=== PATIENT | male | born 1950 | race Caucasian/White ===

== ENCOUNTER 2017-01-22 05:50 | Day surgery (SDC) | payer BC ==
--- NOTE | 2017-01-19 10:21 | HP ---
DATE OF SURGERY: 01/22/2017 ADMISSION DIAGNOSIS: Dysphagia. ANTICIPATED PROCEDURE: EGD possible dilatation. HISTORY OF PRESENT ILLNESS: The patient has difficulty swallowing. Discussion concerning esophageal dilatation and even rupture were discussed and he wished to proceed. PAST MEDICAL HISTORY: ALLERGIES: NONE. MEDICATIONS: Aspirin. PAST SURGICAL HISTORY: Heart stent 2007. SOCIAL HISTORY: Negative. FAMILY HISTORY: Negative. REVIEW OF SYSTEMS: Negative. PHYSICAL EXAMINATION: VITAL SIGNS: Normal. CHEST: Clear. COR: Regular. NECK: Satisfactory. IMPRESSION: Dysphagia. PLAN: EGD possible dilatation.
[2017-01-22] MEDS ORDERED: VERSED 5 MG/5 ML IV ONE (05:51)
[2017-01-22] MEDS ORDERED: DEMEROL 50 MG IV ONE (05:51)
[2017-01-22] MEDS ORDERED: SUBLIMAZE 100 MCG/2 ML IV ONE (05:51)
[2017-01-22] MEDS ORDERED: Sodium Chloride 0.9% 1000 ML 1,000 ML IV SCH (06:30)
[2017-01-22] MEDS ORDERED: Sodium Chloride 0.9% 1000 ML 1,000 ML ONE (07:03)
[2017-01-22 12:02] VITALS: O2SAT 95
[2017-01-22 12:04] VITALS: BP 118/72; PULSE 65
--- NOTE | 2017-01-22 13:32 | OP ---
SURGERY DATE/TIME: 01/22/2017 1013 PREOPERATIVE DIAGNOSIS: Dysphagia. POSTOPERATIVE DIAGNOSIS: Esophageal stricture. PROCEDURE: EGD with balloon dilatation to size 18 for 15 minutes. SURGEON: Aleks Palmer M.D. ANESTHESIA: IV sedation titrated. COMPLICATIONS: None. CONDITION: Stable. INDICATION: A patient requiring evaluation for dysphagia. DESCRIPTION OF PROCEDURE: Taken to endoscopy. Left lateral decubitus position. IV sedation titrated. Oximeter kept over 90%. Comfort level satisfactory. The scope introduced. Esophageal stricture size 24. There was some gastritis. Fundus, body, antrum and pylorus satisfactory. Duodenal bulb satisfactory. Scope advanced. Second portion of the duodenum satisfactory. Scope withdrawn. The balloon size 18 was dilated to phase 1, phase 2, phase 3. This opened this up to about size 42. The patient tolerated the procedure satisfactorily. Licensed Esthetician cold biopsy for gastritis. Findings discussed with the family out in the waiting room.
== END 2017-01-22 11:55 | disposition home or self-care (01) ==
LOC: SDC 05:50
PROVIDERS: ATTEND Surgery
PROC: 0D758ZZ Dilation of Esophagus, Via Natural or Artificial Opening Endoscopic (ICD-10-PCS; principal; 2017-01-22)
DX: K22.2 Esophageal obstruction (principal)
CPT/HCPCS: 82962; 87081; C1726; J2175; J2250; J3010

== ENCOUNTER 2018-08-06 17:51 | Emergency (ER) | payer MEDICARE, OTHER ==
[2018-08-06] MEDS: Nitrostat 0.4 MG (ED) SL ONE (18:00)
[2018-08-06] MEDS: Ntg 0.2MG/Ml in D5W GLASS*** 250 ML IV PRN (18:03)
[2018-08-06] MEDS ORDERED: Ntg 0.2MG/Ml in D5W GLASS*** 250 ML IV ONE (18:03)
[2018-08-06] MEDS ORDERED: Sodium Chloride 0.9% 1000 ML 1,000 ML ONE (18:04)
[2018-08-06] MEDS ORDERED: MORPHINE SULFATE 4 MG INJ ONE (18:04)
--- NOTE | 2018-08-06 18:05 | ERPHSYRPT ---
- History of Present Illness Time Seen by Provider: 08/06/18 17:57 Historian: patient Exam Limitations: no limitations Physician History: 67 y/o white male presents with significant cp. pts with STEMI on immediate 12 lead ekg. cp central without radiation. began one hour front office specialist. pts [employer] is Dr. Koehler. pt took one 325mg asa front office specialist. pt has h/o single cardiac stent. spoke with dr. Magdaleno, foreign trade teacher at [facility] accepts pt and no meds other than ntg and morphine. Timing/Duration: today Activities at Onset: none Quality: pressure, tightness Location: substernal, central Chest Pain Radiation: no radiation Severity of Pain-Max: moderate Severity of Pain-Current: moderate Modifying Factors: Improves With: nothing Associated Symptoms: denies symptoms Prior Chest Pain/Cardiac Workup: cardiac cath, echocardiography, heart attack Nitro Today/Relief: no nitro taken today Aspirin Treatment Today: 325 mg x 1, provided at home Allergies/Adverse Reactions: No Known Drug Allergies Allergy (Verified 08/06/18 17:52) Home Medications: Aspirin 81 gm Chew [Baby Aspirin 81 mg Chew] 162 mg DAILY 06/27/13 [ History] Atorvastatin Calcium 40 mg PO DAILY 01/22/17 [History] Metformin HCl 500 mg [Glucophage 500 MG] 500 mg PO BIDWM 01/22/17 [History ] Valsartan [Diovan] 320 mg PO DAILY 01/22/17 [History] Hx Tetanus, Diphtheria Vaccination/Date Given: No Hx Influenza Vaccination/Date Given: No Hx Pneumococcal Vaccination/Date Given: No - Review of Systems Constitutional: No Symptoms Eyes: No Symptoms Ears, Nose, & Throat: No Symptoms Respiratory: No Symptoms Cardiac: Chest Pain Abdominal/Gastrointestinal: No Symptoms Genitourinary Symptoms: No Symptoms Musculoskeletal: No Symptoms Skin: No Symptoms Neurological: No Symptoms Psychological: No Symptoms Endocrine: No Symptoms Hematologic/Lymphatic: No Symptoms Immunological/Allergic: No Symptoms All Other Systems: Reviewed and Negative - Past Medical History Pertinent Past Medical History: Yes Neurological History: No Pertinent History ENT History: No Pertinent History Cardiac History: Coronary Artery Disease, High Cholesterol, Hypertension, Myocardial Infarction ([place]) Respiratory History: No Pertinent History Endocrine Medical History: Diabetes Type II Musculoskeletal History: No Pertinent History GI Medical History: No Pertinent History History: No Pertinent History Psycho-Social History: No Pertinent History Male Reproductive Disorders: No Pertinent History - Past Surgical History Past Surgical History: No Neuro Surgical History: No Pertinent History Cardiac: Cardiac Catheterization, Cardiac Stent Respiratory: No Pertinent History Gastrointestinal: No Pertinent History Genitourinary: No Pertinent History Musculoskeletal: Other Male Surgical History: No Pertinent History Other Surgical History: foot surgery - Social History Smoking Status: Former smoker How long have you smoked: 16 years Exposure to second hand smoke: No Drug Use: none Patient Lives Alone: No - Physical Exam General Appearance: moderate distress, alert, anxiety Eye Exam: PERRL/EOMI Ears, Nose, Throat Exam: normal ENT inspection, moist mucous membranes Neck Exam: normal inspection, non-tender, supple, full range of motion Respiratory Exam: normal breath sounds, chest tenderness, lungs clear, airway intact, No respiratory distress Cardiovascular Exam: regular rate/rhythm, normal heart sounds, normal peripheral pulses Gastrointestinal/Abdomen Exam: soft, normal bowel sounds, No tenderness Rectal Exam: not done Back Exam: normal inspection, normal range of motion, No CVA tenderness, No vertebral tenderness Extremity Exam: normal inspection, normal range of motion, pelvis stable Neurologic Exam: alert, oriented x 3, cooperative, registered medical assistant II-XII nml as tested Skin Exam: normal color, warm, dry Lymphatic Exam: No adenopathy SpO2 Interpretation: normal O2 Delivery: Room Air - Course Nursing assessment & vital signs reviewed: Yes EKG Interpreted by Me: RATE (85), NORMAL AXIS, ST Elev (1, avl, v2), Other ( normal comparison ekg 06/28/13) - Progress Progress: unchanged Air Movement: good Progress Note: 08/06/18 18:09 dr. magdaleno accepts pt in transfer to [facility] Counseled pt/family regarding: diagnosis - Departure Departure Disposition: Transfer Clinical Impression: STEMI (ST elevation myocardial infarction), Chest pain Condition: Serious Critical Care Time: Yes Critical Care Time(excluding separately billable procedures): 30-74 minutes Referrals: GIANNI BOBO [Primary Care Provider] -
[2018-08-06 18:17] VITALS: O2SAT 96
[2018-08-06] MEDS: MORPHINE SULFATE 4 MG INJ IV ONE (18:21)
[2018-08-06 18:22] LABS: BASOPHIL % 0.4 % (0.0-0.4); Basophil (Absolute #) 0.04 (0-0.4); Eosinophil % 2.4 % (0.00-5.0); Eosinophil (Absolute #) 0.25 (0-0.5); Granulocyte Absolute (ANC) 6.41 (1.4-6.9); Granulocytes % 60.7 % (36.0-66.0); Hematocrit 44.1 % (42-50); Hemoglobin 15.3 gm/dl (12.5-18.0); Lymphocyte (Absolute #) 2.93 (1.0-4.6); Lymphocytes % 27.8 % (24.0-44.0); Mean Cell Volume 82.9 fl (78-100); Mean Corpuscular Hemoglobin 28.8 pg (26-32); Mean Corpuscular Hgb Concent. 34.7 g/dl (32-36); Mean Platelet Volume 9.9 fl (6-9.5); Monocyte (Absolute #) 0.92 (0.0-1.3); Monocytes % 8.7 % (0.0-12.0); Platelet Count 293 K/mm3 (150-450); Red Blood Count 5.32 M/mm3 (4.1-5.6); Red Cell Distribution Width 13.6 % (11.5-14.0); White Blood Count 10.6 K/mm3 (4.0-10.5)
[2018-08-06 18:23] VITALS: BP 167/102; PULSE 74
[2018-08-06 18:43] LABS: ALBUMIN 4.6 g/dL (3.5-5.0); ALKALINE PHOSPHATASE 76 U/L (38-126); BLOOD UREA NITROGEN 20 mg/dL (9-20); CHLORIDE 103 mmol/L (98-107); Calcium 10.2 mg/dL (8.4-10.2); Carbon Dioxide 25 mmol/L (22-30); Glucose 148 mg/dL (74-106); NT PRO BNP 72.7 pg/mL (0-900); Potassium 3.7 mmol/L (3.5-5.1); SGOT/AST 23 U/L (17-59); SGPT/ALT 21 U/L (0-50); SODIUM 142 mmol/L (137-145); Total Protein 7.9 g/dL (6.3-8.2)
== END 2018-08-06 18:12 | disposition short-term general hospital (02) ==
LOC: ED 17:51
DX: I21.3 ST elevation (STEMI) myocardial infarction of unspecified site (principal); R07.9 Chest pain, unspecified; I25.10 Atherosclerotic heart disease of native coronary artery without angina pectoris; I10 Essential (primary) hypertension; E78.00 Pure hypercholesterolemia, unspecified; E11.9 Type 2 diabetes mellitus without complications; Z79.4 Long term (current) use of insulin; I25.2 Old myocardial infarction; Z79.82 Long term (current) use of aspirin; Z79.899 Other long term (current) drug therapy
CPT/HCPCS: 36000; 36415; 80053; 83880; 84484; 85025; 85379; 93005; 99285; 99291; J2270; A9270-GY

== ENCOUNTER 2018-09-17 09:04 | Emergency (ER) | payer MEDICARE, OTHER ==
[2018-09-17 09:20] VITALS: O2SAT 99
[2018-09-17] MEDS ORDERED: BABY ASPIRIN 81 MG CHEW ONE (09:27)
[2018-09-17] MEDS ORDERED: Sodium Chloride 0.9% 1000 ML 1,000 ML ONE (09:27)
[2018-09-17] MEDS ORDERED: Nitrostat 0.4 MG (ED) SL ONE ×2 (09:27→09:28)
[2018-09-17] MEDS ORDERED: BABY ASPIRIN 81 MG CHEW PO ONE (09:28)
[2018-09-17] MEDS ORDERED: Sodium Chloride 0.9% 1000 ML 1,000 ML IV SCH (09:30)
[2018-09-17 09:33] LABS: BASOPHIL % 0.4 % (0.0-0.4); Basophil (Absolute #) 0.04 (0-0.4); Eosinophil % 3.8 % (0.00-5.0); Eosinophil (Absolute #) 0.39 (0-0.5); Granulocyte Absolute (ANC) 8.13 (1.4-6.9); Granulocytes % 80.1 % (36.0-66.0); Hematocrit 39.8 % (42-50); Hemoglobin 13.7 gm/dl (12.5-18.0); Lymphocytes % 9.8 % (24.0-44.0); Mean Cell Volume 86.1 fl (78-100); Mean Corpuscular Hemoglobin 29.7 pg (26-32); Mean Corpuscular Hgb Concent. 34.4 g/dl (32-36); Mean Platelet Volume 10.3 fl (6-9.5); Monocytes % 5.9 % (0.0-12.0); Platelet Count 211 K/mm3 (150-450); Red Blood Count 4.62 M/mm3 (4.1-5.6); Red Cell Distribution Width 14.8 % (11.5-14.0); White Blood Count 10.2 K/mm3 (4.0-10.5)
[2018-09-17 09:35] LABS: INR 1.39 (0.8-3.0); PROTIME 15.8 SECONDS (8.83-12.87)
[2018-09-17 09:40] LABS: ALBUMIN 3.8 g/dL (3.5-5.0); ALKALINE PHOSPHATASE 82 U/L (38-126); ANION GAP 13.7 MEQ/L (5-15); BLOOD UREA NITROGEN 18 mg/dL (9-20); CHLORIDE 103 mmol/L (98-107); Calcium 9.4 mg/dL (8.4-10.2); Carbon Dioxide 25 mmol/L (22-30); Creatinine 1 0.78 mg/dL (0.66-1.25); Glucose 217 mg/dL (74-106); Potassium 4.5 mmol/L (3.5-5.1); SGOT/AST 29 U/L (17-59); SGPT/ALT 28 U/L (0-50); SODIUM 138 mmol/L (137-145); Total Protein 6.8 g/dL (6.3-8.2)
[2018-09-17] MEDS ORDERED: MORPHINE SULFATE 10 MG/ML IV ONE (09:45)
[2018-09-17] MEDS ORDERED: Zofran 4 MG/2 ML VIAL IV ONE (09:45)
[2018-09-17] MEDS ORDERED: ENOXAPARIN SODIUM SQ ONE ×2 (09:46→09:50)
[2018-09-17] MEDS ORDERED: MORPHINE SULFATE 10 MG/ML ONE (09:50)
--- NOTE | 2018-09-17 09:54 | ERPHSYRPT ---
- History of Present Illness Time Seen by Provider: 09/17/18 09:15 Historian: patient Exam Limitations: clinical condition Patient Subjective Stated Complaint: Pain in RUQ and in his back that started out as hertburn, Stent placed in July and ballooned out another one, rates pain 9 /10 Triage Nursing Assessment: Pt walked into the ER, hypertensive, bradycardic, rates pain 9/10, skin normal and dry, no edema, last intake 1900 last night, Physician History: PATIENT WITH A HISTORY OF ACUTE MYOCARDIA INFARCTION 08/06/2018 UNDERWENT STENT INSERTION X 2, AWAKENED FROM SLEEP AT 3AM WITH LOWER SUBSTERNAL CHEST PAIN PRESSURE DISCOMFORT PAIN SCALE 7/10. PAIN RADIATES TO BACK AND HAS BEEN PERSISTENT. DENIES DIAPHORESIS, PALPITATIONS, RADIATION OF PAIN TO NECK JAW OR ARMS. Timing/Duration: today Activities at Onset: none Quality: pressure, sharpness Location: substernal Chest Pain Radiation: back Severity of Pain-Max: moderate Severity of Pain-Current: moderate Modifying Factors: Improves With: nothing Associated Symptoms: diaphoresis Prior Chest Pain/Cardiac Workup: cardiac cath, heart attack (CORONARY STENT INSERTION X 2) Nitro Today/Relief: 0.4 mg x 3, provided by ED, mild relief Aspirin Treatment Today: 81 mg x 4 Allergies/Adverse Reactions: No Known Drug Allergies Allergy (Verified 09/17/18 09:20) Home Medications: Aspirin 81 gm Chew [Baby Aspirin 81 mg Chew] 81 mg DAILY 06/27/13 [History ] Atorvastatin Calcium 80 mg PO DAILY 01/22/17 [History] Metformin HCl 500 mg [Glucophage 500 MG] 500 mg PO BIDWM 01/22/17 [History ] Carvedilol 3.125 mg [Coreg 3.125 MG] 3.125 mg PO DAILY 09/17/18 [History] Enalapril Maleate 2.5 mg PO BID 09/17/18 [History] Nitroglycerin 0.4 mg SL UD 09/17/18 [History] Spironolactone 25 mg PO DAILY 09/17/18 [History] Ticagrelor [Brilinta] 90 mg PO BID 09/17/18 [History] Hx Tetanus, Diphtheria Vaccination/Date Given: No Hx Influenza Vaccination/Date Given: No Hx Pneumococcal Vaccination/Date Given: No - Review of Systems Constitutional: No Fever, No Chills Eyes: No Symptoms Ears, Nose, & Throat: No Symptoms Respiratory: No Symptoms, No Cough, No Dyspnea Cardiac: Chest Pain (DIAPHORESIS), No Edema, No Syncope Abdominal/Gastrointestinal: No Abdominal Pain, No Nausea, No Vomiting, No Diarrhea Genitourinary Symptoms: No Dysuria Musculoskeletal: No Symptoms, No Back Pain, No Neck Pain Skin: No Rash Neurological: No Dizziness, No Focal Weakness, No Sensory Changes Psychological: No Symptoms Endocrine: No Symptoms All Other Systems: Reviewed and Negative - Past Medical History Pertinent Past Medical History: Yes Neurological History: No Pertinent History ENT History: No Pertinent History Cardiac History: Coronary Artery Disease, High Cholesterol, Hypertension, Myocardial Infarction ([place]) Respiratory History: No Pertinent History Endocrine Medical History: Diabetes Type II Musculoskeletal History: No Pertinent History GI Medical History: No Pertinent History History: No Pertinent History Psycho-Social History: No Pertinent History Male Reproductive Disorders: No Pertinent History - Past Surgical History Past Surgical History: Yes Neuro Surgical History: No Pertinent History Cardiac: Cardiac Catheterization, Cardiac Stent Respiratory: No Pertinent History Gastrointestinal: No Pertinent History Genitourinary: No Pertinent History Musculoskeletal: Other Male Surgical History: No Pertinent History Other Surgical History: foot surgery - Social History Smoking Status: Former smoker How long have you smoked: 16 years Exposure to second hand smoke: Yes Drug Use: none Patient Lives Alone: No - Nursing Vital Signs Nursing Vital Signs: Initial Vital Signs Pulse Rate 48 L 09/17/18 09:11 Respiratory Rate 20 09/17/18 09:11 Blood Pressure 167/83 09/17/18 09:11 O2 Sat by Pulse Oximetry 99 09/17/18 09:11 Pain Scale Pain Intensity 2 - Physical Exam General Appearance: no apparent distress, alert Eye Exam: PERRL/EOMI, eyes nml inspection Ears, Nose, Throat Exam: normal ENT inspection, moist mucous membranes Neck Exam: normal inspection, non-tender, supple, full range of motion Respiratory Exam: normal breath sounds, lungs clear, No respiratory distress Cardiovascular Exam: regular rate/rhythm, normal heart sounds, bradycardia Gastrointestinal/Abdomen Exam: soft, No tenderness, No mass Back Exam: normal inspection, No CVA tenderness, No vertebral tenderness Extremity Exam: normal inspection, normal range of motion Neurologic Exam: alert, oriented x 3, cooperative, normal mood/affect, sensation nml, No motor deficits Skin Exam: normal color, warm, dry SpO2 Interpretation: normal SpO2: 99 O2 Delivery: Room Air Ordered Tests: Active Orders 24 hr Category Date Time Status Senior Mechanical Project Manager STAT Care 09/17/18 09:29 Active EKG-ER Only STAT Care 09/17/18 09:28 Active IV Insertion STAT Care 09/17/18 09:28 Active IV Insertion STAT Care 09/17/18 09:45 Active Oxygen-ED Only Nasal Cannula 2 lpm Care 09/17/18 09:28 Active CHEST 1 VIEW (PORTABLE) Stat Exams 09/17/18 09:28 Completed CBC W DIFF Stat Lab 09/17/18 09:23 Completed CMP Stat Lab 09/17/18 09:23 Completed D-DIMER QUANTITATION Stat Lab 09/17/18 09:23 Completed MAGNESIUM Stat Lab 09/17/18 09:23 Completed PROTIME WITH INR Stat Lab 09/17/18 09:23 Completed TROPONIN Q3H Lab 09/17/18 09:23 Completed TROPONIN Q3H Lab 09/17/18 12:30 Ordered TROPONIN Q3H Lab 09/17/18 15:30 Ordered TROPONIN Q3H Lab 09/17/18 18:30 Ordered TROPONIN Q3H Lab 09/17/18 21:30 Ordered Medication Summary Generic Name Dose Route Start Last Admin Trade Name Freq PRN Reason Stop Dose Admin Sodium Chloride 1,000 mls @ 100 mls/hr 09/17/18 09:30 09/17/18 09:35 Sodium Chloride 0.9% 1000 Ml IV 10/17/18 09:29 100 mls/hr .Q10H CARY Administration Discontinued Medications Generic Name Dose Route Start Last Admin Trade Name Freq PRN Reason Stop Dose Admin Aspirin 324 mg 09/17/18 09:28 09/17/18 09:34 Baby Aspirin 81 Mg Chew PO 09/17/18 09:29 324 mg STAT ONE Administration Aspirin Confirm 09/17/18 09:27 Baby Aspirin 81 Mg Chew Administered 09/17/18 09:28 Dose 324 mg .ROUTE .STK-MED ONE Enoxaparin Sodium 60 mg 09/17/18 09:46 09/17/18 09:54 Enoxaparin Sodium SQ 09/17/18 09:47 60 mg STAT ONE Administration Enoxaparin Sodium Confirm 09/17/18 09:50 Enoxaparin Sodium Administered 09/17/18 09:51 Dose 80 mg SQ .STK-MED ONE Nitroglycerin/Dextrose Confirm 09/17/18 10:09 Ntg 0.2mg/Ml In D5w Glass Administered 09/17/18 10:10 Dose 250 mls @ ud IV .STK-MED ONE Morphine Sulfate 6 mg 09/17/18 09:45 09/17/18 09:53 Morphine Sulfate 10 Mg/Ml IV 09/17/18 09:46 6 mg STAT ONE Administration Morphine Sulfate Confirm 09/17/18 09:50 Morphine Sulfate 10 Mg/Ml Administered 09/17/18 09:51 Dose 10 mg .ROUTE .STK-MED ONE Nitroglycerin 0.4 mg 09/17/18 09:28 09/17/18 09:35 Nitrostat 0.4 Mg (Ed) SL 09/17/18 09:29 0.4 mg STAT ONE Administration Nitroglycerin Confirm 09/17/18 09:27 Nitrostat 0.4 Mg (Ed) Administered 09/17/18 09:28 Dose 0.4 mg SL .STK-MED ONE Ondansetron HCl 4 mg 09/17/18 09:45 09/17/18 10:07 Zofran 4 Mg/2 Ml Vial IV 09/17/18 09:46 4 mg STAT ONE Administration Ondansetron HCl Confirm 09/17/18 10:05 Zofran 4 Mg/2 Ml Vial Administered 09/17/18 10:06 Dose 4 mg .ROUTE .STK-MED ONE Lab/Rad Data: Laboratory Result Diagrams 09/17/18 09:23 09/17/18 09:23 Laboratory Results 09/17/18 09/17/18 09/17/18 Range/Units 09:23 09:23 09:23 WBC (4.0-10.5) K/mm3 RBC (4.1-5.6) M/mm3 Hgb (12.5-18.0) gm/dl Hct (42-50) % MCV (78-100) fl MCH (26-32) pg MCHC (32-36) g/dl RDW (11.5-14.0) % Plt Count (150-450) K/mm3 MPV (6-9.5) fl Gran % (36.0-66.0) % Eos # (Auto) (0-0.5) Absolute Lymphs (auto) (1.0-4.6) Absolute Monos (auto) (0.0-1.3) Lymphocytes % (24.0-44.0) % Monocytes % (0.0-12.0) % Eosinophils % (0.00-5.0) % Basophils % (0.0-0.4) % Absolute Granulocytes (1.4-6.9) Basophils # (0-0.4) PT 15.8 H (8.83-12.87) SECONDS INR 1.39 (0.8-3.0) D-Dimer 530 H* (215-500) ng/mL Sodium (137-145) mmol/L Potassium (3.5-5.1) mmol/L Chloride (98-107) mmol/L Carbon Dioxide (22-30) mmol/L Anion Gap (5-15) MEQ/L BUN (9-20) mg/dL Creatinine (0.66-1.25) mg/dL Estimated GFR ML/MIN Glucose (74-106) mg/dL Calcium (8.4-10.2) mg/dL Magnesium 1.9 (1.6-2.3) mg/dL Total Bilirubin (0.2-1.3) mg/dL AST (17-59) U/L ALT (0-50) U/L Alkaline Phosphatase (38-126) U/L Troponin I 0.019 (0.000-0.034) ng/mL Serum Total Protein (6.3-8.2) g/dL Albumin (3.5-5.0) g/dL 09/17/18 09/17/18 Range/Units 09:23 09:23 WBC 10.2 (4.0-10.5) K/mm3 RBC 4.62 (4.1-5.6) M/mm3 Hgb 13.7 (12.5-18.0) gm/dl Hct 39.8 L (42-50) % MCV 86.1 (78-100) fl MCH 29.7 (26-32) pg MCHC 34.4 (32-36) g/dl RDW 14.8 H (11.5-14.0) % Plt Count 211 (150-450) K/mm3 MPV 10.3 H (6-9.5) fl Gran % 80.1 H (36.0-66.0) % Eos # (Auto) 0.39 (0-0.5) Absolute Lymphs (auto) 1.00 (1.0-4.6) Absolute Monos (auto) 0.60 (0.0-1.3) Lymphocytes % 9.8 L (24.0-44.0) % Monocytes % 5.9 (0.0-12.0) % Eosinophils % 3.8 (0.00-5.0) % Basophils % 0.4 (0.0-0.4) % Absolute Granulocytes 8.13 H (1.4-6.9) Basophils # 0.04 (0-0.4) PT (8.83-12.87) SECONDS INR (0.8-3.0) D-Dimer (215-500) ng/mL Sodium 138 (137-145) mmol/L Potassium 4.5 (3.5-5.1) mmol/L Chloride 103 (98-107) mmol/L Carbon Dioxide 25 (22-30) mmol/L Anion Gap 13.7 (5-15) MEQ/L BUN 18 (9-20) mg/dL Creatinine 0.78 (0.66-1.25) mg/dL Estimated GFR > 60.0 ML/MIN Glucose 217 H (74-106) mg/dL Calcium 9.4 (8.4-10.2) mg/dL Magnesium (1.6-2.3) mg/dL Total Bilirubin 0.70 (0.2-1.3) mg/dL AST 29 (17-59) U/L ALT 28 (0-50) U/L Alkaline Phosphatase 82 (38-126) U/L Troponin I (0.000-0.034) ng/mL Serum Total Protein 6.8 (6.3-8.2) g/dL Albumin 3.8 (3.5-5.0) g/dL - Progress Progress Note: 09/17/18 09:57 ADMINISTERED BABY ASPIRIN 81MG X 4, NTG SL 0.4MG X 3 DOSES MINIMAL RELIEF, LOVENOX 60MG SUBQ, PAIN SCALE 3/10 IMPROVED 09/17/18 10:01, IV ZOFRAN 4MG, MORPHINE 6MG Discussed with : Other (DISCUSSED [facility] AT [facility]5 ACCEPTS TRANSFER VIA [facility]) - Departure Departure Disposition: Transfer Clinical Impression: UNSTABLE ANGINA Condition: Stable Critical Care Time: No Referrals: RAMIRO SIM, DRY CHAIN OFFBEARER [Primary Care Provider] -
--- NOTE | 2018-09-17 09:56 | XRAY ---
Indication: Chest pain. Comparison: June 27, 2013. Portable chest less inflated accentuating the cardiopulmonary structures. No focal infiltrate, consolidation, or large effusion. Heart is not enlarged for AP portable technique. Bony thorax intact. Impression: Nonacute chest.
[2018-09-17] MEDS ORDERED: Zofran 4 MG/2 ML VIAL ONE (10:05)
[2018-09-17] MEDS ORDERED: Ntg 0.2MG/Ml in D5W GLASS*** 250 ML IV ONE (10:09)
[2018-09-17] MEDS ORDERED: Ntg 0.2MG/Ml in D5W GLASS*** 250 ML IV PRN (10:28)
[2018-09-17 10:41] VITALS: BP 116/62; PULSE 50
== END 2018-09-17 10:22 | disposition short-term general hospital (02) ==
LOC: ED 09:04
DX: I20.0 Unstable angina (principal); I25.2 Old myocardial infarction; E11.9 Type 2 diabetes mellitus without complications; Z79.4 Long term (current) use of insulin; I25.10 Atherosclerotic heart disease of native coronary artery without angina pectoris; I10 Essential (primary) hypertension; Z79.899 Other long term (current) drug therapy
CPT/HCPCS: 36000; 36415; 71045; 80053; 83735; 84484; 85025; 85379; 85610; 93005; 93041; 96360; 96365; 96372; 96374; 96375; 99285; 99291; J1650; J2270; J2405; A9270-GY

== ENCOUNTER 2021-05-02 15:58 | Emergency (ER) | payer MEDICARE, OTHER ==
[2021-05-02 18:06] VITALS: BP 118/67; PULSE 96
[2021-05-02 18:08] VITALS: O2SAT 96
--- NOTE | 2021-05-02 18:08 | ERPHSYRPT ---
- History of Present Illness Time Seen by Provider: 05/02/21 16:30 Source: patient Exam Limitations: no limitations Patient Subjective Stated Complaint: pt here for an swelling to left jaw for a couple days,was seen at [place] last night and dentist is aware of problem Triage Nursing Assessment: pt alert, walked in . resp easy, skin w/d/p, face mask in place, has swelling to left side of jaw Physician History: 70 years old male with dental work-up done few weeks ago presented to the ER with complaint of left lower jaw swelling gradual onset progressively worsening for the last 4 days with associated mild sharp pain. Patient was evaluated yesterday at [place] ER and has taken 3 doses of amoxicillin prescribed by his dentist presented with increasing swelling. No difficulty swallowing or difficulty breathing reported. No swelling floor of the mouth but on the lateral aspect of left lower jaw. No neck swelling or pressure/choking sensation. Timing/Duration: gradual onset, persistent, days (4) Severity: moderate ENT Location: facial, dental Prearrival Treatment: prescription meds Associated Symptoms: facial pain/swelling, tooth pain Allergies/Adverse Reactions: No Known Drug Allergies Allergy (Verified 05/02/21 16:29) Home Medications: Aspirin 81 gm Chew [Baby Aspirin 81 mg Chew] 81 mg DAILY 06/27/13 [History] Atorvastatin Calcium 80 mg PO DAILY 01/22/17 [History] Metformin HCl 500 mg [Glucophage 500 MG] 500 mg PO BIDWM 01/22/17 [History] Carvedilol 3.125 mg [Coreg 3.125 MG] 3.125 mg PO DAILY 09/17/18 [History] Enalapril Maleate 2.5 mg PO BID 09/17/18 [History] Nitroglycerin 0.4 mg SL UD 09/17/18 [History] Spironolactone 25 mg PO DAILY 09/17/18 [History] Ticagrelor [Brilinta] 90 mg PO BID 09/17/18 [History] Hx Tetanus, Diphtheria Vaccination/Date Given: No Hx Influenza Vaccination/Date Given: No Hx Pneumococcal Vaccination/Date Given: No Immunizations Up to Date: Yes Travel Risk - International Travel Have you traveled outside of the country in past 3 weeks: No - Coronavirus Screening Are you exhibiting any of the following symptoms?: No - Vaccine Status Have you recieved a Covid-19 vaccination: No - Review of Systems Constitutional: No Symptoms Eyes: No Symptoms Ears, Nose, & Throat: Mouth Pain, Mouth Swelling Respiratory: No Symptoms Cardiac: No Symptoms Abdominal/Gastrointestinal: No Symptoms Genitourinary Symptoms: No Symptoms Musculoskeletal: No Symptoms Skin: No Symptoms Neurological: No Symptoms Psychological: No Symptoms Endocrine: No Symptoms Hematologic/Lymphatic: No Symptoms Immunological/Allergic: No Symptoms - Past Medical History Pertinent Past Medical History: Yes Neurological History: No Pertinent History ENT History: No Pertinent History Cardiac History: Coronary Artery Disease, High Cholesterol, Hypertension, Myocardial Infarction ([place]) Respiratory History: No Pertinent History Endocrine Medical History: Diabetes Type II Musculoskeletal History: No Pertinent History GI Medical History: No Pertinent History History: No Pertinent History Psycho-Social History: No Pertinent History Male Reproductive Disorders: No Pertinent History - Past Surgical History Past Surgical History: Yes Neuro Surgical History: No Pertinent History Cardiac: Cardiac Catheterization, Cardiac Stent Respiratory: No Pertinent History Gastrointestinal: No Pertinent History Genitourinary: No Pertinent History Musculoskeletal: Other Male Surgical History: No Pertinent History Other Surgical History: foot surgery - Social History Smoking Status: Former smoker How long have you smoked: 16 years Exposure to second hand smoke: Yes Drug Use: none Patient Lives Alone: No - Nursing Vital Signs Nursing Vital Signs: Initial Vital Signs Temperature 97.9 F 05/02/21 16:23 Pulse Rate 73 05/02/21 16:23 Respiratory Rate 18 05/02/21 16:23 Blood Pressure 155/100 05/02/21 16:23 O2 Sat by Pulse Oximetry 98 05/02/21 16:23 Pain Scale Pain Intensity 7 - Physical Exam General Appearance: no apparent distress, alert Eye Exam: bilateral eye: normal inspection, PERRL, EOMI Ear Exam: bilateral ear: auricle normal, canal normal, TM normal Nasal Exam: normal inspection Throat Exam: pharynx normal, dental tenderness (Left lower jaw), mandibular swelling (Left lower gingival swelling, firm consistency. No fluctuation.) Neck Exam: normal inspection, non-tender, supple, full range of motion, trachea midline Cardiovascular/Respiratory Exam: normal breath sounds, regular rate/rhythm Neurologic Exam: alert, oriented x 3, cooperative, gaming associate II-XII nml as tested Skin Exam: normal color SpO2 Interpretation: normal SpO2: 96 O2 Delivery: Room Air Ordered Tests: Active Orders 24 hr Category Date Time Status FACIAL BONES WO CONTRAST [CT] Stat Exams 05/02/21 17:07 Taken - Progress Progress: unchanged Progress Note: 05/02/21 18:[address] which is negative for abscess but does have soft tissue swelling. No airway narrowing or pressure. Recommended continue with Tylenol ibuprofen and amoxicillin and outpatient follow-up with his dentist tomorrow. Counseled pt/family regarding: diagnosis, need for follow-up, rad results - Departure Departure Disposition: Home Clinical Impression: Dental infection Condition: Stable Critical Care Time: No Referrals: ASIM LPOEZ MD [Primary Care Provider] - Follow up/PCP as directed MARY NICHOLAS DDS [NON-STAFF PHY W/O PRIVILEGES] - Follow up/PCP as directed (tomorrow for re evaluation ) Instructions: Dental Pain (DC), Tooth Abscess (DC) Additional Instructions: Take Tylenol/ibuprofen as needed for pain. Do warm salt water gargles. Follow- up with your dentist for reevaluation tomorrow. Return to ER for increasing swelling, difficulty breathing/swallowing, pressure on the throat/choking sensation.
--- NOTE | 2021-05-03 08:45 | XRAY ---
Indication: Left facial pain. Abscess. Multiple contiguous axial images obtained through the facial bones without contrast. Comparison: None There are multiple bilateral dental amalgams producing beam artifact limiting these levels. No acute fracture, suspicious bony lesions, or osseous destructive process. Orbits including roof, pressley, and floors are intact. Minimal C3-C6 degenerative endplate spurring. Paranasal sinuses and nasal passages are clear. Mild nasal septal deviation to the right. Left jaw demonstrates moderate cutaneous/subcutaneous induration presumed inflammatory/infectious. No focal walled off fluid collection or soft tissue emphysema. There are scattered small submandibular/cervical lymph nodes, largest left submandibular measuring 6 x 11 mm favored to be reactive. Parotid and submandibular glands are bilaterally symmetric. Remaining visualized noncontrasted soft tissues including orbits and base of the brain are unremarkable. Impression: 1. Beam artifact. 2. Left jaw soft tissue induration presumed inflammatory/infectious. No walled off fluid collection/abscess or soft tissue emphysema. 3. Incidental nasal septal deviation and C3-C6 degenerative changes.
== END 2021-05-02 19:06 | disposition home or self-care (01) ==
LOC: ED 15:58
DX: K04.7 Periapical abscess without sinus (principal); I25.10 Atherosclerotic heart disease of native coronary artery without angina pectoris; E78.5 Hyperlipidemia, unspecified; I10 Essential (primary) hypertension; E11.9 Type 2 diabetes mellitus without complications; Z79.84 Long term (current) use of oral hypoglycemic drugs; Z79.899 Other long term (current) drug therapy
CPT/HCPCS: 70486; 99283

== ENCOUNTER 2021-05-10 19:38 | Emergency (ER) | payer MEDICARE, OTHER ==
--- NOTE | 2021-05-10 19:45 | ERPHSYRPT ---
- History of Present Illness Time Seen by Provider: 05/10/21 19:44 Source: patient Exam Limitations: no limitations Physician History: This is a 70-year-old white male patient of Dr. Lopez who is on both aspirin and Brilinta and has a history of hypertension, elevated cholesterol, diabetes, coronary artery disease and cardiac stents and had dental work approximately 4 weeks ago and then again today for a tooth extraction in the left lower molar. Patient was not told to stop his Brilinta or aspirin prior to today's procedure. The patient states that he did mention this to the dentist and they did not feel that it was necessary to stop those medications. However, postoperatively, the patient has had persistent bleeding from the tooth extraction site. Patient did finally get a hold of the oral surgeon who performed the procedure and he was told to use teabags which, per patient report, might have slowed down the bleeding a little bit but is still significant and he became concerned. Patient arrives vital signs stable and hemodynamically stable. Timing/Duration: gradual onset, this evening ENT Location: dental Modifying Factors: Improves With: nothing Associated Symptoms: other (Postoperative bleeding from tooth extraction site) Allergies/Adverse Reactions: No Known Drug Allergies Allergy (Verified 05/10/21 19:58) Home Medications: Aspirin 81 gm Chew [Baby Aspirin 81 mg Chew] 81 mg DAILY 06/27/13 [History] Atorvastatin Calcium 80 mg PO DAILY 01/22/17 [History] Metformin HCl 500 mg [Glucophage 500 MG] 500 mg PO BIDWM 01/22/17 [History] Carvedilol 3.125 mg [Coreg 3.125 MG] 3.125 mg PO DAILY 09/17/18 [History] Enalapril Maleate 2.5 mg PO BID 09/17/18 [History] Nitroglycerin 0.4 mg SL UD 09/17/18 [History] Spironolactone 25 mg PO DAILY 09/17/18 [History] Ticagrelor [Brilinta] 90 mg PO BID 09/17/18 [History] Hx Tetanus, Diphtheria Vaccination/Date Given: No Hx Influenza Vaccination/Date Given: No Hx Pneumococcal Vaccination/Date Given: No Travel Risk - International Travel Have you traveled outside of the country in past 3 weeks: No - Coronavirus Screening Are you exhibiting any of the following symptoms?: No Close contact with a COVID-19 positive Pt in past 14-21 Days: No - Vaccine Status Have you recieved a Covid-19 vaccination: No - Review of Systems Constitutional: No Symptoms Eyes: No Symptoms Ears, Nose, & Throat: Other (Postoperative bleeding from tooth extraction site) Respiratory: No Symptoms Cardiac: No Symptoms Abdominal/Gastrointestinal: No Symptoms Genitourinary Symptoms: No Symptoms Musculoskeletal: No Symptoms Skin: No Symptoms Neurological: No Symptoms Psychological: No Symptoms Endocrine: No Symptoms Hematologic/Lymphatic: No Symptoms Immunological/Allergic: No Symptoms All Other Systems: Reviewed and Negative - Past Medical History Pertinent Past Medical History: Yes Neurological History: No Pertinent History ENT History: No Pertinent History Cardiac History: Coronary Artery Disease, High Cholesterol, Hypertension, Myocardial Infarction ([place]) Respiratory History: No Pertinent History Endocrine Medical History: Diabetes Type II Musculoskeletal History: No Pertinent History GI Medical History: No Pertinent History History: No Pertinent History Psycho-Social History: No Pertinent History Male Reproductive Disorders: No Pertinent History - Past Surgical History Past Surgical History: Yes Neuro Surgical History: No Pertinent History Cardiac: Cardiac Catheterization, Cardiac Stent Respiratory: No Pertinent History Gastrointestinal: No Pertinent History Genitourinary: No Pertinent History Musculoskeletal: Other Male Surgical History: No Pertinent History Other Surgical History: foot surgery - Social History Smoking Status: Former smoker How long have you smoked: 16 years Exposure to second hand smoke: Yes Drug Use: none Patient Lives Alone: No - Nursing Vital Signs Nursing Vital Signs: Initial Vital Signs Temperature 98.0 F 05/10/21 19:43 Pulse Rate 72 05/10/21 19:43 Respiratory Rate 16 05/10/21 19:43 Blood Pressure 165/100 05/10/21 19:43 O2 Sat by Pulse Oximetry 98 05/10/21 19:43 Pain Scale Pain Intensity 0 - Physical Exam General Appearance: no apparent distress, alert, anxiety Eye Exam: bilateral eye: normal inspection, PERRL, EOMI Ear Exam: bilateral ear: auricle normal Nasal Exam: normal inspection Throat Exam: dental tenderness (And bleeding from tooth extraction site? Tooth #35 or 36.) Neck Exam: normal inspection, non-tender, supple, full range of motion, trachea midline Cardiovascular/Respiratory Exam: chest non-tender, no respiratory distress Abdominal Exam: non-tender Neurologic Exam: alert, oriented x 3, cooperative, business analyst ecommerce II-XII nml as tested, normal mood/affect, nml cerebellar function, nml station & gait, sensation nml Skin Exam: normal color, warm, dry - Course Nursing assessment & vital signs reviewed: Yes Ordered Tests: Active Orders 24 hr Category Date Time Status CBC W DIFF Stat Lab 05/10/21 21:50 Completed PROTIME WITH INR Stat Lab 05/10/21 21:50 Completed Lab/Rad Data: Laboratory Result Diagrams 05/10/21 21:50 Laboratory Results 05/10/21 05/10/21 Range/Units 21:50 21:50 WBC 12.5 H (4.0-10.5) K/mm3 RBC 4.04 L (4.1-5.6) M/mm3 Hgb 11.8 L (12.5-18.0) gm/dl Hct 34.1 L (42-50) % MCV 84.4 (78-100) fl MCH 29.2 (26-32) pg MCHC 34.6 (32-36) g/dl RDW 13.3 (11.5-14.0) % Plt Count 378 (150-450) K/mm3 MPV 8.2 (7.5-11.0) fl Gran % 78.6 H (36.0-66.0) % Eos # (Auto) 0.29 (0-0.5) Absolute Lymphs (auto) 1.36 (1.0-4.6) Absolute Monos (auto) 0.98 (0.0-1.3) Lymphocytes % 10.9 L (24.0-44.0) % Monocytes % 7.9 (0.0-12.0) % Eosinophils % 2.3 (0.00-5.0) % Basophils % 0.3 (0.0-0.4) % Absolute Granulocytes 9.81 H (1.4-6.9) Basophils # 0.04 (0-0.4) PT 16.6 H (9.4-12.5) SECONDS INR 1.41 (0.8-3.0) - Progress Progress: improved Progress Note: 05/10/21 20:22 Patient was informed that this hospital does not carry the antibiotic based Brilinta reversal agent. 05/10/21 20:39 After the second piece of Surgicel/hemostatic fibular agent application it appears as though the bleeding is slowing down and it appears as though there is a clot forming but certainly has not completely stopped yet. We will continue this process since things continue to improve. 05/10/21 21:21 We attempted to contact the patient's dentist, Dr. George Out of [facility]. There was no answer and their office hours are Thursday through Thursday 8 AM to 5 PM 05/10/21 21:49 Dr. George, the patient dentist did call back. He stated that he does not have anything new or different to offer him. I explained to him what we have done in order to help provide some hemostasis. He stated that is exactly what he would do which is suction out clot and replace hemostatic agent. We are awaiting his CBC and coagulation studies. If these are in a reasonable range, we will discharge him to home. He has been instructed on how to place the Surgicel hemostatic/fibrillar topical material to the extraction site then to apply the gauze for pressure. Patient is to call his dentist tomorrow morning and provide the dentist with a follow-up. Patient is aware that if he feels dizzy, short of breath or weak or feels the bleeding is increasing, he needs to proceed to emergency department where there is an oral surgeon available. 05/10/21 22:05 I will write the patient a prescription to return to the emergency department for repeat CBC, PT/INR tomorrow morning after 8:00. Counseled pt/family regarding: diagnosis, need for follow-up - Departure Departure Disposition: Home Clinical Impression: Postoperative bleeding from mouth Condition: Stable Critical Care Time: No Referrals: ASIM LOPEZ MD [Primary Care Provider] - Follow up/PCP as directed Additional Instructions: Drink cold fluids. Use the hemostatic agent as needed and instructed with 4 x 4 gauze compression over this. If the bleeding persists, follow-up with oral surgery or ENT physician through emergency rooms and [facility] or [facility]. Call your dentist tomorrow morning for further evaluation and management. Stop your Brilinta and aspirin. Do not restart until after you speak with your vp compliance. Return to the hospital laboratory department tomorrow morning after 8 AM to recheck blood counts and coagulation studies. Make sure there is family member available to you for observation and transportation if needed.
[2021-05-10 21:55] LABS: Absolute Neutrophil Ct (ANC) 9.81 (1.4-6.9); Basophil (Absolute #) 0.04 (0-0.4); Eosinophil % 2.3 % (0.00-5.0); Eosinophil (Absolute #) 0.29 (0-0.5); Hematocrit 34.1 % (42-50); Hemoglobin 11.8 gm/dl (12.5-18.0); Lymphocyte (Absolute #) 1.36 (1.0-4.6); Lymphocytes % 10.9 % (24.0-44.0); Mean Cell Volume 84.4 fl (78-100); Mean Corpuscular Hemoglobin 29.2 pg (26-32); Mean Corpuscular Hgb Concent. 34.6 g/dl (32-36); Mean Platelet Volume 8.2 fl (7.5-11.0); Monocyte (Absolute #) 0.98 (0.0-1.3); Monocytes % 7.9 % (0.0-12.0); Neutrophil % 78.6 % (36.0-66.0); Platelet Count 378 K/mm3 (150-450); Red Blood Count 4.04 M/mm3 (4.1-5.6); Red Cell Distribution Width 13.3 % (11.5-14.0); White Blood Count 12.5 K/mm3 (4.0-10.5)
[2021-05-10 22:02] LABS: INR 1.41 (0.8-3.0); PROTIME 16.6 SECONDS (9.4-12.5)
[2021-05-10 22:17] VITALS: O2SAT 98
[2021-05-10 23:00] VITALS: BP 134/86; PULSE 71
== END 2021-05-10 22:58 | disposition home or self-care (01) ==
LOC: ED 19:38
DX: K91.841 Postprocedural hemorrhage of a digestive system organ or structure following other procedure (principal); Z79.01 Long term (current) use of anticoagulants; I25.10 Atherosclerotic heart disease of native coronary artery without angina pectoris; E78.5 Hyperlipidemia, unspecified; I10 Essential (primary) hypertension; E11.9 Type 2 diabetes mellitus without complications; Z79.84 Long term (current) use of oral hypoglycemic drugs; Z79.899 Other long term (current) drug therapy
CPT/HCPCS: 36415; 85025; 85610; 99283

== ENCOUNTER 2021-06-13 06:56 | Day surgery (SDC) | payer MEDICARE, OTHER ==
--- NOTE | 2021-06-12 13:05 | HP ---
DATE OF SURGERY: 06/13/2021 HISTORY OF PRESENT ILLNESS: The patient presented to the office with complaints of dysphagia, having trouble swallowing. Did not specify whether food or solid was giving him the issue at this time. Requesting intervention at this time. PAST MEDICAL HISTORY: Coronary artery disease, hyperlipidemia, hypertension, diabetes, history of myocardial infarction, reflux. PAST SURGICAL HISTORY: Two heart stents. ALLERGIES: NKDA. MEDICATIONS: Nitro, Metformin, glimepiride, Enalapril, aspirin, atorvastatin, Coreg. The patient recently off Brilinta per his torch solderer, Dr. Koehler. FAMILY HISTORY: Heart disease, diabetes. SOCIAL HISTORY: None. REVIEW OF SYSTEMS: CONSTITUTIONAL: Denies fever or chills. CHEST: Denies shortness of breath. CVS: Denies chest pain. ABDOMEN: Denies abdominal pain. PHYSICAL EXAMINATION: GENERAL: No acute distress. CHEST: Nonlabored. No shortness of breath. CVS: Regular rate and rhythm. ABDOMEN: Soft. IMPRESSION: Dysphagia. PLAN: EGD with Dr. Aleks Palmer. As dictated by Keyla Echeverria NP.
[2021-06-13] MEDS ORDERED: Lactated Ringers 1,000 ML IV SCH (07:30)
[2021-06-13] MEDS ORDERED: Lactated Ringers 1,000 ML IV ONE (07:42)
[2021-06-13] MEDS ORDERED: DIPRIVAN 200 MG/20 ML IV ONE (09:10)
[2021-06-13] MEDS ORDERED: Xylocaine-Mpf 2% 5 Ml Vial ONE (09:10)
[2021-06-13 10:39] VITALS: O2SAT 97
[2021-06-13 10:42] VITALS: BP 127/80; PULSE 51
--- NOTE | 2021-06-13 11:21 | OP ---
SURGERY DATE/TIME: 06/13/2021 0913 PREOPERATIVE DIAGNOSIS: Dysphagia with history of stricture. POSTOPERATIVE DIAGNOSIS: Symptomatic stricture size 24. PROCEDURE: EGD with dilatation of stricture from 24 to 48. SURGEON: Aleks Palmer M.D. ANESTHESIA: MAC by Ahmet Benítez CRNA. COMPLICATIONS: None. CONDITION: Stable. INDICATION: A patient having difficulty swallowing now. He has a history of stricture. DESCRIPTION OF PROCEDURE: He was taken to endoscopy. MAC sedation provided by Ahmet Benítez CRNA. Excellent anesthesia level present. Scope introduced. Pharyngoesophageal junction satisfactory. Esophagus normal down to 38 cm. A size 24 stricture was present. Small hiatal hernia. Fundus, body and antrum satisfactory. Pylorus satisfactory. Duodenal bulb and second portion normal. Scope withdrawn looped upon itself. Small hiatal hernia and stricture noted. The balloon was passed through scope into the stomach and it was pulled back to the stricture. It was centered on the stricture and it went through stage 1, stage 2 for 1 minute each. The balloon was mid stricture and the stricture dilated to about 48. It looked satisfactory. Picture was taken. Picture was given to the family. Scope withdrawn. The patient tolerated the procedure satisfactorily.
== END 2021-06-13 10:30 | disposition home or self-care (01) ==
LOC: SDC 06:56
PROVIDERS: ATTEND Surgery
DX: K22.2 Esophageal obstruction (principal); R13.10 Dysphagia, unspecified; K44.9 Diaphragmatic hernia without obstruction or gangrene; E11.9 Type 2 diabetes mellitus without complications
CPT/HCPCS: 82947; C1726; J2704

== ENCOUNTER 2022-05-13 05:40 | Emergency (ER) | payer MEDICARE, OTHER ==
[2022-05-13 06:00] LABS: Absolute Neutrophil Ct (ANC) 9.71 x10^3/uL (1.4-6.9); BASOPHIL % 0.5 % (0.0-0.4); Basophil (Absolute #) 0.06 x10^3/uL (0-0.4); Eosinophil % 1.4 % (0.00-5.0); Eosinophil (Absolute #) 0.18 x10^3/uL (0-0.5); Hemoglobin 13.3 g/dL (12.5-18.0); IMMATURE GRAN # 0.03 x10^3u/L (0.00-0.03); IMMATURE GRAN % 0.2 % (0.00-0.4); Lymphocyte (Absolute #) 1.81 x10^3/uL (1.0-4.6); Lymphocytes % 14.5 % (24.0-44.0); Mean Cell Volume 81.4 fL (78-100); Mean Corpuscular Hemoglobin 27.8 pg (26-32); Mean Corpuscular Hgb Concent. 34.1 g/dL (32-36); Mean Platelet Volume 8.9 fL (7.5-11.0); Monocyte (Absolute #) 0.71 x10^3/uL (0.0-1.3); Monocytes % 5.7 % (0.0-12.0); Neutrophil % 77.7 % (36.0-66.0); Platelet Count 304 x10^3/uL (150-450); Red Blood Count 4.79 x10^6/uL (4.1-5.6); Red Cell Distribution Width 14.5 % (11.5-14.0); White Blood Count 12.5 x10^3/uL (4.0-10.5)
[2022-05-13] MEDS ORDERED: BABY ASPIRIN 81 MG CHEW PO ONE (06:13)
[2022-05-13] MEDS ORDERED: MORPHINE SULFATE 4 MG INJ IV ONE (06:13)
[2022-05-13 06:14] LABS: INR 1.04 (0.8-3.0); PROTIME 11.3 SECONDS (9.4-12.5); PTT 22.6 SECONDS (25.1-36.5)
[2022-05-13] MEDS ORDERED: BABY ASPIRIN 81 MG CHEW ONE (06:14)
[2022-05-13] MEDS ORDERED: MORPHINE SULFATE 4 MG INJ ONE (06:14)
[2022-05-13 06:21] LABS: ALBUMIN 4.1 g/dL (3.5-5.0); ALKALINE PHOSPHATASE 90 U/L (38-126); ANION GAP 17.9 MEQ/L (5-15); BLOOD UREA NITROGEN 13 mg/dL (9-20); CHLORIDE 98 mmol/L (98-107); Calcium 8.9 mg/dL (8.4-10.2); Carbon Dioxide 20 mmol/L (22-30); Creatinine 1 0.87 mg/dL (0.66-1.25); EST GLOMERULAR FILTRATION RATE > 60.0 ML/MIN; Glucose 219 mg/dL (74-106); MAGNESIUM 1.8 mg/dL (1.6-2.3); NT PRO BNPII 252 pg/mL (<300); Potassium 4.2 mmol/L (3.5-5.1); SGOT/AST 28 U/L (17-59); SGPT/ALT 24 U/L (0-50); SODIUM 131 mmol/L (137-145); Total Protein 6.9 g/dL (6.3-8.2)
--- NOTE | 2022-05-13 06:23 | ERPHSYRPT ---
<RANDALL KUHN AishwaryaNalini - Last Filed: 05/13/22 09:56> - History of Present Illness Allergies/Adverse Reactions: No Known Drug Allergies Allergy (Verified 05/13/22 06:01) Home Medications: Aspirin 81 gm Chew [Baby Aspirin 81 mg Chew] 81 mg DAILY 06/27/13 [History] Atorvastatin Calcium 80 mg PO HS 01/22/17 [History] Metformin HCl 500 mg [Glucophage 500 MG] 500 mg PO BIDWM 01/22/17 [History] Carvedilol 3.125 mg [Coreg 3.125 MG] 3.125 mg PO DAILY 09/17/18 [History] Enalapril Maleate 2.5 mg PO BID 09/17/18 [History] Nitroglycerin 0.4 mg SL UD 09/17/18 [History] - Progress Progress: improved, re-examined Air Movement: good Progress Note: 05/13/22 09:07 CT of the chest with contrast shows no pulmonary embolus. There is no evidence of any acute infiltrate. There is a small hiatal hernia. There is no evidence of any acute cardiopulmonary process. This patient has medical concerns/issues of moderate complexity. The work-up was based on review of the patient's medical history, medication list, and review of the patient's medication allergy list as well as history of present illness and physical findings on examination. The work-up was ordered by Dr. Shaffer and I assumed care of this patient at 7 AM. I reviewed the results of the lab work, twelve-lead EKG, chest x-ray and the CT scan of the chest with contrast. Patient has no acute cardiac or pulmonary issue. His scapular pain is likely muscle skeletal. Patient denies chest pain at the time of discharge. We are awaiting the results of the second troponin. If this is normal, patient will be discharged to home with a prescription of Percocet 5/325 number 6 tablets. He is also instructed to continue his medication as prescribed and to follow-up with his primary care provider and data warehouse manager for further evaluation management. 05/13/22 09:11 Blood Culture(s) Obtained: No Antibiotics given: No Counseled pt/family regarding: lab results, diagnosis, need for follow-up, rad results Medical Desision Making - Independent Historian Additional History obtained from: Family - Discussion of managment Reviewed:: Test results, Need for additional workup Agreed on:: Treatment plan, need for follow-up - Diagnostic Testing Diagnostic test were ordered, analyzed, and reviewed by me: Yes Radiological Interpretation: Reviewed by me, Teleradiologist Report - Risk of complications The pt has a mod risk of morbidity or mortality based on: Need for prescription drug management - Departure Departure Disposition: Home Clinical Impression: Pain of right scapula Condition: Stable Critical Care Time: No Referrals: ASIM LOPEZ MD [ACTIVE STAFF] - Follow up/PCP as directed Instructions: Low Back Pain (DC) Additional Instructions: Take your medication as prescribed. Follow-up with your primary care provider for further evaluation and management. Prescriptions: Oxycodone HCl/Acetaminophen [Percocet 5-325 mg Tablet] 1 each PO Q8H PRN PRN #6 tablet MDD 3 PRN Reason: Moderate To Severe Pain <MACY SHAFFER - Last Filed: 05/14/22 23:02> - History of Present Illness Historian: patient, other () Patient Subjective Stated Complaint: back pain on right side that popped and then chest pain Triage Nursing Assessment: pt ambulated into ER without diff, at bedside. Pt c/o pain to his back in the middle on the right side which occured around 11pm, and pt was unable to get comfortable from that pain, and then began to have chest pain on the right side around the breast area. Pt continues to have back pain, states, "My whole back hurts right now". Pt had shingles in January and is still fighting the pain from those. Lungs clear, heart tones reg, bradycardia at 50 b/min, which is normal for him per pt. Abd soft with active bs x4 quad, nontender. Physician History: 71 yo wm w R scapular pain after rolling over in bed and hearing a "pop"times at 2300 last night. Pt states that pain is 10 on scale and nothing makes it better or worse. He told my nurses that he was having chest pain but adamantly denied having any chest pain to me after being asked several times. Pt states that he was having mild dyspnea, mild nausea, but denied vomiting/diaphoresis. Pt took 1SL NTG w maybe mild improvement. He has a h/o MO x2/stents x2/DM/hyperlipidemia/HTN/smoked until . Timing/Duration: other (2299) Quality: aching Location: other (R scapular) Severity of Pain-Max: severe Severity of Pain-Current: severe Modifying Factors: Improves With: nothing Associated Symptoms: nausea, shortness of breath Prior Chest Pain/Cardiac Workup: cardiac cath, heart attack Nitro Today/Relief: 0.4 mg x 1 Aspirin Treatment Today: no aspirin today Hx Tetanus, Diphtheria Vaccination/Date Given: No Hx Influenza Vaccination/Date Given: No Hx Pneumococcal Vaccination/Date Given: No Immunizations Up to Date: No Travel Risk - International Travel Have you traveled outside of the country in past 3 weeks: No - Coronavirus Screening Are you exhibiting any of the following symptoms?: No Close contact with a COVID-19 positive Pt in past 14-21 Days: No - Vaccine Status Have you recieved a Covid-19 vaccination: No - Review of Systems Constitutional: No Symptoms Eyes: No Symptoms Ears, Nose, & Throat: No Symptoms Respiratory: No Symptoms, Dyspnea Cardiac: No Symptoms Abdominal/Gastrointestinal: No Symptoms, Nausea Genitourinary Symptoms: No Symptoms Musculoskeletal: No Symptoms Skin: No Symptoms Neurological: No Symptoms Psychological: No Symptoms Endocrine: No Symptoms Hematologic/Lymphatic: No Symptoms Immunological/Allergic: No Symptoms - Past Medical History Pertinent Past Medical History: Yes Neurological History: No Pertinent History ENT History: No Pertinent History Cardiac History: Coronary Artery Disease, High Cholesterol, Hypertension, Myocardial Infarction ([place]) Respiratory History: No Pertinent History Endocrine Medical History: Diabetes Type II Musculoskeletal History: No Pertinent History GI Medical History: No Pertinent History History: No Pertinent History Psycho-Social History: No Pertinent History Male Reproductive Disorders: No Pertinent History Other Medical History: mi x2 - Past Surgical History Past Surgical History: Yes Neuro Surgical History: No Pertinent History Cardiac: Cardiac Catheterization, Cardiac Stent Respiratory: No Pertinent History Gastrointestinal: No Pertinent History Genitourinary: No Pertinent History Musculoskeletal: Other Male Surgical History: No Pertinent History Other Surgical History: foot surgery. throat stretched x2 - Social History Smoking Status: Former smoker How long have you smoked: 16 years Exposure to second hand smoke: No Drug Use: none Patient Lives Alone: No - Nursing Vital Signs Nursing Vital Signs: Initial Vital Signs Temperature 96.4 F 05/13/22 05:44 Pulse Rate 50 L 05/13/22 05:44 Respiratory Rate 18 05/13/22 05:44 Blood Pressure 143/72 05/13/22 05:44 O2 Sat by Pulse Oximetry 100 05/13/22 05:44 Pain Scale Pain Intensity 4 Iván/Hypertensive - Physical Exam General Appearance: no apparent distress (In pain) Eye Exam: PERRL/EOMI, eyes nml inspection Ears, Nose, Throat Exam: normal ENT inspection, TMs normal, pharynx normal, moist mucous membranes Neck Exam: normal inspection, non-tender, supple, full range of motion, No meningismus Respiratory Exam: normal breath sounds, lungs clear, airway intact, No chest tenderness, No respiratory distress Cardiovascular Exam: bradycardia, capillary refill <2 sec, No murmur Gastrointestinal/Abdomen Exam: soft, normal bowel sounds, No tenderness Back Exam: other (TTP R medial scapular area) Extremity Exam: normal inspection, normal range of motion Neurologic Exam: alert, oriented x 3, cooperative, farm owner operator II-XII nml as tested, normal mood/affect, nml cerebellar function, nml station & gait, sensation nml Skin Exam: normal color, warm, dry Lymphatic Exam: No adenopathy SpO2 Interpretation: normal SpO2: 100 O2 Delivery: Room Air - Course EKG Interpreted by Me: RATE (Sinus iván/Rate 50/prolonged QT/Old anterior MO/No acute ST segment changes/EKG#2 sinus iván rate45/prolonged QT/Flipped Twave V2/No acute ST changes/Both EKG's compared to EKG 09/17/18 wo sig changes) Ordered Tests: Medication Summary Discontinued Medications Generic Name Dose Route Start Last Admin Trade Name Duke PRN Reason Stop Dose Admin Aspirin 324 mg 05/13/22 06:13 05/13/22 06:16 Aspirin 81 Mg Tab.Chew PO 05/13/22 06:14 324 mg STAT ONE Administration Aspirin Confirm 05/13/22 06:14 Aspirin 81 Mg Tab.Chew Administered 05/13/22 06:15 Dose 324 mg .ROUTE .STK-MED ONE Morphine Sulfate 4 mg 05/13/22 06:13 05/13/22 06:16 Morphine Sulfate 4 Mg/Ml Injection IV 05/13/22 06:14 4 mg STAT ONE Administration Morphine Sulfate Confirm 05/13/22 06:14 Morphine Sulfate 4 Mg/Ml Injection Administered 05/13/22 06:15 Dose 4 mg .ROUTE .STK-MED ONE Morphine Sulfate 2 mg 05/13/22 08:23 05/13/22 08:27 Morphine Sulfate 2 Mg/Ml Inj IV 05/13/22 08:24 2 mg STAT ONE Administration Morphine Sulfate Confirm 05/13/22 08:26 Morphine Sulfate 2 Mg/Ml Inj Administered 05/13/22 08:27 Dose 2 mg .ROUTE .STK-MED ONE Ondansetron HCl 4 mg 05/13/22 06:51 05/13/22 06:53 Ondansetron Hcl 4 Mg/2 Ml Vial IV 05/13/22 06:52 4 mg STAT ONE Administration Ondansetron HCl Confirm 05/13/22 06:52 Ondansetron Hcl 4 Mg/2 Ml Vial Administered 05/13/22 06:53 Dose 4 mg .ROUTE .STK-MED ONE Lab/Rad Data: Laboratory Result Diagrams 05/13/22 05:50 05/13/22 05:50 Laboratory Results 05/13/22 05/13/22 05/13/22 Range/Units 09:05 05:50 05:50 WBC (4.0-10.5) x10^3/uL RBC (4.1-5.6) x10^6/uL Hgb (12.5-18.0) g/dL Hct (42-50) % MCV (78-100) fL MCH (26-32) pg MCHC (32-36) g/dL RDW (11.5-14.0) % Plt Count (150-450) x10^3/uL MPV (7.5-11.0) fL Gran % (36.0-66.0) % Immature Gran % (Auto) (0.00-0.4) % Nucleat RBC Rel Count (0.00-0.1) % Eos # (Auto) (0-0.5) x10^3/uL Immature Gran # (Auto) (0.00-0.03) x10^3u/L Absolute Lymphs (auto) (1.0-4.6) x10^3/uL Absolute Monos (auto) (0.0-1.3) x10^3/uL Absolute Nucleated RBC (0.00-0.01) x10^3u/L Lymphocytes % (24.0-44.0) % Monocytes % (0.0-12.0) % Eosinophils % (0.00-5.0) % Basophils % (0.0-0.4) % Absolute Granulocytes (1.4-6.9) x10^3/uL Basophils # (0-0.4) x10^3/uL PT 11.3 (9.4-12.5) SECONDS INR 1.04 (0.8-3.0) APTT 22.6 L (25.1-36.5) SECONDS Sodium (137-145) mmol/L Potassium (3.5-5.1) mmol/L Chloride (98-107) mmol/L Carbon Dioxide (22-30) mmol/L Anion Gap (5-15) MEQ/L BUN (9-20) mg/dL Creatinine (0.66-1.25) mg/dL Estimated GFR ML/MIN Glucose (74-106) mg/dL Calcium (8.4-10.2) mg/dL Magnesium (1.6-2.3) mg/dL Total Bilirubin (0.2-1.3) mg/dL AST (17-59) U/L ALT (0-50) U/L Alkaline Phosphatase (38-126) U/L Troponin I < 0.012 < 0.012 (0.000-0.034) ng/mL NT-Pro-B Natriuret Pep (<300) pg/mL Serum Total Protein (6.3-8.2) g/dL Albumin (3.5-5.0) g/dL 05/13/22 05/13/22 Range/Units 05:50 05:50 WBC 12.5 H (4.0-10.5) x10^3/uL RBC 4.79 (4.1-5.6) x10^6/uL Hgb 13.3 (12.5-18.0) g/dL Hct 39.0 L (42-50) % MCV 81.4 (78-100) fL MCH 27.8 (26-32) pg MCHC 34.1 (32-36) g/dL RDW 14.5 H (11.5-14.0) % Plt Count 304 (150-450) x10^3/uL MPV 8.9 (7.5-11.0) fL Gran % 77.7 H (36.0-66.0) % Immature Gran % (Auto) 0.2 (0.00-0.4) % Nucleat RBC Rel Count 0.0 (0.00-0.1) % Eos # (Auto) 0.18 (0-0.5) x10^3/uL Immature Gran # (Auto) 0.03 (0.00-0.03) x10^3u/L Absolute Lymphs (auto) 1.81 (1.0-4.6) x10^3/uL Absolute Monos (auto) 0.71 (0.0-1.3) x10^3/uL Absolute Nucleated RBC 0.00 (0.00-0.01) x10^3u/L Lymphocytes % 14.5 L (24.0-44.0) % Monocytes % 5.7 (0.0-12.0) % Eosinophils % 1.4 (0.00-5.0) % Basophils % 0.5 (0.0-0.4) % Absolute Granulocytes 9.71 H (1.4-6.9) x10^3/uL Basophils # 0.06 (0-0.4) x10^3/uL PT (9.4-12.5) SECONDS INR (0.8-3.0) APTT (25.1-36.5) SECONDS Sodium 131 L (137-145) mmol/L Potassium 4.2 (3.5-5.1) mmol/L Chloride 98 (98-107) mmol/L Carbon Dioxide 20 L (22-30) mmol/L Anion Gap 17.9 H (5-15) MEQ/L BUN 13 (9-20) mg/dL Creatinine 0.87 (0.66-1.25) mg/dL Estimated GFR > 60.0 ML/MIN Glucose 219 H (74-106) mg/dL Calcium 8.9 (8.4-10.2) mg/dL Magnesium 1.8 (1.6-2.3) mg/dL Total Bilirubin 0.90 (0.2-1.3) mg/dL AST 28 (17-59) U/L ALT 24 (0-50) U/L Alkaline Phosphatase 90 (38-126) U/L Troponin I (0.000-0.034) ng/mL NT-Pro-B Natriuret Pep 252 (<300) pg/mL Serum Total Protein 6.9 (6.3-8.2) g/dL Albumin 4.1 (3.5-5.0) g/dL - Progress Progress Note: 05/13/22 07:05 Nursing note and vital signs reviewed No food or housing insecurities noted Pt is a full code 324 ASA po given 4mg IV Morphine given w improvement in pain from 10 to 7 Pt developed nausea while in CT, so 4mg IV Morphine given Initial troponin negative Care turned over to Dr. Kuhn at 7AM w CTA of chest pending/2nd troponin pending
[2022-05-13] MEDS ORDERED: Zofran 4 MG/2 ML VIAL IV ONE (06:51)
[2022-05-13] MEDS ORDERED: Zofran 4 MG/2 ML VIAL ONE (06:52)
[2022-05-13] MEDS ORDERED: MORPHINE SULFATE 2 MG INJ IV ONE (08:23)
[2022-05-13] MEDS ORDERED: MORPHINE SULFATE 2 MG INJ ONE (08:26)
--- NOTE | 2022-05-13 08:45 | XRAY ---
Indication: Chest pain. Comparison: September 17, 2018 Portable chest better inflated and clear. Heart not enlarged. Bony thorax intact. No new/acute findings.
--- NOTE | 2022-05-13 08:45 | XRAY ---
Indication: Chest and back pain. Pulmonary embolus. Dissection. Multiple contiguous axial images obtained through the chest using 100 cc Isovue 370 contrast and PE protocol. Comparison: None Good opacification of the pulmonary arteries to include the lobar and segmental branches. No pulmonary embolus. Heart is not enlarged with coronary calcifications. Aorta is normal in course and caliber without aneurysm/dissection. A few tiny mediastinal and right hilar calcified nodes. No pathologic mediastinal/hilar lymphadenopathy. Small hiatal hernia. Lungs inflated and clear. Bony thorax intact. Limited upper abdomen demonstrates fatty liver and tiny hepatic/splenic calcified granulomas. Impression: 1. Negative pulmonary embolus. 2. Incidental small hiatal hernia and old granulomatous disease. 3. Remaining CT chest with contrast exam is negative. Comment: Preliminary interpretation made by [facility]. No critical discrepancy.
[2022-05-13 10:32] VITALS: BP 125/65; PULSE 50
[2022-05-14 23:02] VITALS: O2SAT 100
== END 2022-05-13 10:34 | disposition home or self-care (01) ==
LOC: ED 05:40
DX: M25.511 Pain in right shoulder (principal); M89.8X1 Other specified disorders of bone, shoulder; R06.02 Shortness of breath; R11.0 Nausea; E78.5 Hyperlipidemia, unspecified; I10 Essential (primary) hypertension; E11.9 Type 2 diabetes mellitus without complications; I25.10 Atherosclerotic heart disease of native coronary artery without angina pectoris; Z79.84 Long term (current) use of oral hypoglycemic drugs; Z79.899 Other long term (current) drug therapy; Z28.310 Unvaccinated for COVID-19
CPT/HCPCS: 36415; 71045; 71260; 80053; 83735; 83880; 84484; 85025; 85610; 85730; 93005; 96374; 96375; 96376; 99284; J2270; J2405; A9270-GY

== ENCOUNTER 2022-11-26 13:58 | Emergency (ER) | payer MEDICARE, OTHER ==
--- NOTE | 2022-11-26 14:12 | ERPHSYRPT ---
- History of Present Illness Time Seen by Provider: 11/26/22 14:12 Source: patient Exam Limitations: no limitations Physician History: Is a 72-year-old white male who is right-handed and was using large miguel to trim trees. He attempted to use 1 limb of this year against a wall to gain better leverage in order to cut thick tree limb. It slipped and hit the dorsal aspect of his right hand. In a short period of time there was significant swelling present. He definitely has a hematoma of the dorsal aspect of his right hand. He is neurovascularly intact. However, he is concerned about the pain and the rapid rate of increase of this right hand dorsal aspect hematoma. Patient has a history of hypertension, diabetes, coronary disease and hyperlipidemia. He has no chest pain. He has no shortness of breath. He has no known bleeding or clotting disorders. He is not on any anticoagulation therapy. Occurred: this morning Method of Injury: direct blow Quality: aching (Dorsal aspect right hand) Severity of Pain-Max: mild Severity of Pain-Current: mild (Moderate to moderate) Extremities Pain Location: hand: right (Uche aspect) Modifying Factors: Improves With: movement Associated Symptoms: none Allergies/Adverse Reactions: No Known Drug Allergies Allergy (Verified 11/26/22 14:11) Home Medications: Aspirin 81 gm Chew [Baby Aspirin 81 mg Chew] 81 mg PO DAILY 06/27/13 [History] Atorvastatin Calcium 80 mg PO HS 01/22/17 [History] Metformin HCl 500 mg [Glucophage 500 MG] 500 mg PO BIDWM 01/22/17 [History] Carvedilol 3.125 mg [Coreg 3.125 MG] 3.125 mg PO DAILY 09/17/18 [History] Nitroglycerin 0.4 mg SL UD 09/17/18 [History] Glimepiride 4 mg [Amaryl 4 mg] 4 mg PO DAILY 05/19/22 [History] Losartan Potassium 50 mg [Cozaar 50 MG] 1 tab PO DAILY 11/26/22 [History] Hx Tetanus, Diphtheria Vaccination/Date Given: No Hx Influenza Vaccination/Date Given: No Hx Pneumococcal Vaccination/Date Given: No Travel Risk - International Travel Have you traveled outside of the country in past 3 weeks: No - Coronavirus Screening Are you exhibiting any of the following symptoms?: No Close contact with a COVID-19 positive Pt in past 14-21 Days: No - Vaccine Status Have you recieved a Covid-19 vaccination: No - Review of Systems Constitutional: No Symptoms Eyes: No Symptoms Ears, Nose, & Throat: No Symptoms Respiratory: No Symptoms Cardiac: No Symptoms Abdominal/Gastrointestinal: No Symptoms Genitourinary Symptoms: No Symptoms Musculoskeletal: Injury Skin: No Symptoms Neurological: No Symptoms (Still aspect right hand) Psychological: No Symptoms Endocrine: No Symptoms Hematologic/Lymphatic: No Symptoms Immunological/Allergic: No Symptoms All Other Systems: Reviewed and Negative - Past Medical History Pertinent Past Medical History: Yes Neurological History: No Pertinent History ENT History: No Pertinent History Cardiac History: Coronary Artery Disease, High Cholesterol, Hypertension, Myocardial Infarction (ID) Respiratory History: No Pertinent History Endocrine Medical History: Diabetes Type II Musculoskeletal History: No Pertinent History GI Medical History: No Pertinent History History: No Pertinent History Psycho-Social History: No Pertinent History Male Reproductive Disorders: No Pertinent History Other Medical History: mi x2 - Past Surgical History Past Surgical History: Yes Neuro Surgical History: No Pertinent History Cardiac: Cardiac Catheterization, Cardiac Stent Respiratory: No Pertinent History Gastrointestinal: No Pertinent History Genitourinary: No Pertinent History Musculoskeletal: Other Male Surgical History: No Pertinent History Other Surgical History: foot surgery. throat stretched x2 - Social History Smoking Status: Former smoker How long have you smoked: 16 years Exposure to second hand smoke: No Drug Use: none Patient Lives Alone: No - Nursing Vital Signs Nursing Vital Signs: Initial Vital Signs Temperature 97.7 F 11/26/22 13:58 Pulse Rate 60 11/26/22 13:58 Respiratory Rate 16 11/26/22 13:58 Blood Pressure 120/70 11/26/22 13:58 O2 Sat by Pulse Oximetry 100 11/26/22 13:58 Pain Scale Pain Intensity 8 - Physical Exam General Appearance: no apparent distress, alert, anxiety Eyes, Ears, Nose, Throat Exam: normal ENT inspection, moist mucous membranes Neck Exam: normal inspection, non-tender, supple, full range of motion Cardiovascular/Respiratory Exam: chest non-tender, no respiratory distress Abdominal Exam: non-tender Back Exam: normal inspection, normal range of motion, No CVA tenderness, No vertebral tenderness Shoulder Exam: normal inspection, non-tender, no evidence of injury, normal ROM Elbow/Forearm Exam: normal inspection, non-tender, no evidence of injury, normal ROM Wrist Exam: normal inspection (Patient has strong radial pulse on the right side), non-tender, no evidence of injury, normal ROM Hand Exam: normal ROM, soft tissue tenderness (Dorsal aspect with significant dorsal subcutaneous hematoma present.), swelling (Social aspect right hand) Neuro/Tendon Exam: normal sensation, normal motor functions, normal tendon functions, responds to pain, no evidence tendon injury Mental Status Exam: alert, oriented x 3, cooperative Skin Exam: warm, dry SpO2 Interpretation: normal O2 Delivery: Room Air - Course Nursing assessment & vital signs reviewed: Yes Ordered Tests: Active Orders 24 hr Category Date Time Status HAND (MINIMUM 3 VIEWS) Stat Exams 11/26/22 14:09 Taken - Progress Progress: unchanged Progress Note: 11/26/22 14:45 This patient's medical issue is 1 of moderate complexity. Level complexity in the work-up performed is based on review of the patient's past medical history, review the patient's medication list, review of the patient's drug allergy list, history of present illness and physical findings on examination. The work-up in this patient includes x-ray of the right hand. I interpreted the x-ray of the right hand. I do not appreciate a bony fracture or dislocation. There is evidence both clinically and on x-ray of soft tissue swelling the dorsal aspect of the right hand. Counseled pt/family regarding: need for follow-up, rad results Medical Desision Making - Diagnostic Testing Diagnostic test were ordered, analyzed, and reviewed by me: Yes Radiological Interpretation: Interpreted by me - Risk of complications The pt has a mod risk of morbidity or mortality based on: Need for prescription drug management - Departure Departure Disposition: Home Clinical Impression: Contusion of right hand, Traumatic hematoma of right hand Condition: Stable Critical Care Time: No Referrals: DELFINO HARRELL [Primary Care Provider] - Follow up/PCP as directed Additional Instructions: Ice pack/ice bath right hand 3-4 times a day for the next 48 hours. After each bath, dried the site and then replace Mendez wrap as a compression dressing. Take your medication as prescribed. Return to the emergency department tomorrow, 11/27/2022, for reevaluation. Call your primary care provider today, 11/26/2022, to make an appointment for follow-up in the next 2 to 3 days for reassessment. Prescriptions: Oxycodone HCl/Acetaminophen [Percocet 5-325 mg Tablet] 1 each PO Q8H PRN PRN #6 tablet MDD 3 PRN Reason: Moderate To Severe Pain
[2022-11-26 14:30] VITALS: TEMP 97.7
--- NOTE | 2022-11-26 14:42 | XRAY ---
Indication: Pain and swelling following injury. Comparison: None 3 view right hand demonstrates osteopenia, minimal degenerative changes all IP joints, mild 1st metacarpal multangular degenerative changes, radiocarpal joint space narrowing, and minimal ulnar artery calcifications. No other bony, articular, or soft tissue abnormalities.
[2022-11-26 15:05] VITALS: BP 116/70; PULSE 58; RESP 17; O2SAT 98
== END 2022-11-26 15:00 | disposition home or self-care (01) ==
LOC: ED 13:58
DX: S60.221A Contusion of right hand, initial encounter (principal); W20.8XXA Other cause of strike by thrown, projected or falling object, initial encounter; Y93.H2 Activity, gardening and landscaping; I10 Essential (primary) hypertension; E11.9 Type 2 diabetes mellitus without complications; E78.5 Hyperlipidemia, unspecified; Z79.84 Long term (current) use of oral hypoglycemic drugs; Z79.891 Long term (current) use of opiate analgesic; Z79.899 Other long term (current) drug therapy; Z28.310 Unvaccinated for COVID-19
CPT/HCPCS: 73130; 99283